=== PATIENT | female | born 1960 | race Caucasian/White ===

== ENCOUNTER 2017-04-05 00:51 | Observation (INO) | payer BC ==
[2017-04-05] MEDS ORDERED: PHENAZOPYRIDINE 100 MG TAB PO STA (01:14)
[2017-04-05] MEDS ORDERED: ONDANSETRON ODT 4 MG TAB PO STA (01:14)
--- NOTE | 2017-04-05 01:21 | ED ---
General Adult HPI - General Chief complaint: Abdominal Pain Stated complaint: Abd Pain Time Seen by Provider: 04/05/17 01:05 Source: patient, RN notes reviewed Mode of arrival: wheelchair Limitations: no limitations - History of Present Illness Initial comments: 56-year-old female presents emergency Department chief complaint of pelvic pain and burning with urination. Patient states she's had this for pelvic pain more to the right in the middle in the left side. Patient states she's also had burning stinging with urination. Patient states she is urinating much more. Patient states she has had some nausea with this well. Patient admits to history of UTIs in the past and states this feels much like that. Patient denies any cough cold runny nose. Patient denies any back pain with this. Patient denies any gross blood in the urine. Patient states she was concerned due to her symptoms so she thought that she should be evaluated. Patient denies any recent fever, chills, shortness of breath, chest pain, back pain, abdominal pain, vomiting, numbness or tingling, constipation or diarrhea, headaches or visual changes, or any other current symptoms. - Related Data Home Medications Medication Instructions Recorded Confirmed Levothyroxine Sodium [Synthroid] 125 mcg PO DAILY 04/05/17 04/05/17 Allergies Allergy/AdvReac Type Severity Reaction Status Date / Time Penicillins Allergy Rash/Hives Verified 04/05/17 01:01 morphine AdvReac Unknown Verified 04/05/17 01:01 Review of Systems ROS Statement: Those systems with pertinent positive or pertinent negative responses have been documented in the HPI. ROS Other: All systems not noted in ROS Statement are negative. Past Medical History Past Medical History: Thyroid Disorder History of Any Multi-Drug Resistant Organisms: None Reported Past Surgical History: Section, Cholecystectomy, Orthopedic Surgery, Tubal Ligation Additional Past Surgical History / Comment(s): gastric bypass 07/2006, thyroid removed 2005, neck fusion, breast reduction, bilat foot bunion removed, c-sect x 2, Past Psychological History: Anxiety, Depression Smoking Status: Former smoker Past Alcohol Use History: Occasional Past Drug Use History: None Reported General Exam - General Exam Comments Initial Comments: General: The patient is awake and alert, in no distress, and does not appear acutely ill. Eye: Pupils are equal, round and reactive to light, extra-ocular movements are intact; there is normal conjunctiva bilaterally. No signs of icterus. Ears, nose, mouth and throat: There are moist mucous membranes. Neck: The neck is supple, there is no tenderness. Cardiovascular: There is a regular rate and rhythm. No murmur, rub or gallop is appreciated. Respiratory: Lungs are clear to auscultation, respirations are non-labored, breath sounds are equal. No wheezes, stridor, rales, or rhonchi. Gastrointestinal: Soft, non-distended, suprapubic tenderness of the abdomen without masses or organomegaly noted. There is no rebound or guarding present. No CVA tenderness. Bowel sounds are unremarkable. Back: There is no tenderness to palpation in the midline. There is no obvious deformity. No rashes noted. Musculoskeletal: Normal ROM, no tenderness, There is no pedal edema. There is no calf tenderness or swelling. Sensation intact. Pulses equal bilaterally 2+. Neurological: CN II-XII intact, There are no obvious motor or sensory deficits. Coordination appears grossly intact. Speech is normal. Skin: Skin is warm and dry and no rashes or lesions are noted. Psychiatric: Cooperative, appropriate mood & affect, normal judgment. Limitations: no limitations Course Vital Signs 04/05/17 04/05/17 04/05/17 00:55 02:12 03:00 Temperature 96.9 F L Pulse Rate 82 65 94 Respiratory 16 18 20 Rate Blood Pressure 140/66 119/64 145/79 O2 Sat by Pulse 98 98 100 Oximetry Medical Decision Making - Medical Decision Making 56-year-old female presents emergency Department what appears to be UTI like symptoms. At this time. CAT scan is showing a 2 mm ureteral stone. This time there is suspicion for UTI on CAT scan along with bacteria noticing the urine. There is mild white count. At this time. Patient is on the border admission versus going home. The patient does not feel comfortable going home. She states she still is in a lot of discomfort. At this time we will admit the patient due to the nausea. The vomiting, the stone with a positive UTI due to her high risk of developing sepsis with this. The patient stated she understood and is in agreement with plan. The patient will be admitted. - Lab Data Result diagrams: 04/05/17 02:10 04/05/17 02:10 Lab Results 04/05/17 04/05/17 04/05/17 Range/Units 01:05 02:10 02:10 WBC 11.0 H (3.8-10.6) k/uL RBC 3.94 (3.80-5.40) m/uL Hgb 12.5 (11.4-16.0) gm/dL Hct 37.7 (34.0-46.0) % MCV 95.9 (80.0-100.0) fL MCH 31.9 (25.0-35.0) pg MCHC 33.2 (31.0-37.0) g/dL RDW 13.4 (11.5-15.5) % Plt Count 209 (150-450) k/uL Neutrophils % 83 % Lymphocytes % 11 % Monocytes % 4 % Eosinophils % 1 % Basophils % 0 % Neutrophils # 9.1 H (1.3-7.7) k/uL Lymphocytes # 1.2 (1.0-4.8) k/uL Monocytes # 0.4 (0-1.0) k/uL Eosinophils # 0.1 (0-0.7) k/uL Basophils # 0.0 (0-0.2) k/uL Sodium 140 (137-145) mmol/L Potassium 4.1 (3.5-5.1) mmol/L Chloride 101 (98-107) mmol/L Carbon Dioxide 28 (22-30) mmol/L Anion Gap 11 mmol/L BUN 18 H (7-17) mg/dL Creatinine 1.30 H (0.52-1.04) mg/dL Est GFR (MDRD) Af Amer 52 (>60 ml/min/1.73 sqM) Est GFR (MDRD) Non-Af 43 (>60 ml/min/1.73 sqM) Glucose 111 H (74-99) mg/dL Calcium 9.3 (8.4-10.2) mg/dL Total Bilirubin 0.4 (0.2-1.3) mg/dL AST 33 (14-36) U/L ALT 42 (9-52) U/L Alkaline Phosphatase 54 (38-126) U/L Total Protein 6.4 (6.3-8.2) g/dL Albumin 4.0 (3.5-5.0) g/dL Urine Color Yellow Urine Appearance Turbid H (Clear) Urine pH 5.5 (5.0-8.0) Ur Specific [place] 1.037 H (1.001-1.035) Urine Protein 1+ H (Negative) Urine Glucose (UA) Negative (Negative) Urine Ketones Negative (Negative) Urine Blood Negative (Negative) Urine Nitrite Negative (Negative) Urine Bilirubin Negative (Negative) Urine Urobilinogen 3.0 (<2.0) mg/dL Ur Leukocyte Esterase Negative (Negative) Ur Squamous Epith Cells 15 H (0-4) /hpf Calcium Oxalate Crystal Many H (None) /hpf Urine Bacteria Rare H (None) /hpf Hyaline Casts 14 H (0-2) /lpf Urine Mucus Few H (None) /hpf Disposition Clinical Impression: UTI (urinary tract infection), Ureteral calculi, Nausea & vomiting Disposition: ADMITTED IP TO THIS [facility] Condition: Stable Referrals: Lionel Caballero MD [Primary Care Provider] - 1-2 days Time of Disposition: 03:13 Decision Date: 04/05/17 Decision Time: 03:13
[2017-04-05 01:43] LABS: Appearance,Urine Turbid (Clear); Bacteria,Urine Rare /hpf; Bilirubin,Urine Negative (Negative); Calcium Oxalate Crystals,Urine Many /hpf; Glucose,Urine (UA) Negative (Negative); Ketones,Urine Negative (Negative); Leukocyte Esterase,Urine Negative (Negative); Mucus,Urine Few /hpf; Nitrite,Urine Negative (Negative); PH, Urine 5.5 (5.0-8.0); Particle Count 8699; Protein,Urine 1+ (Negative); Specific Gravity,Urine 1.037 (1.001-1.035); Squamous Epithelial Cell,Urine 15 /hpf (0-4); UA Billing (MACRO vs. MICRO) MICRO
[2017-04-05] MEDS ORDERED: HYDROmorphone 1 MG/ML 1 ML SYRINGE IVP STA (01:47)
--- NOTE | 2017-04-05 02:17 | CT ---
EXAM: CT Abdomen and Pelvis Without Intravenous Contrast CLINICAL HISTORY: Right flank pain, with nausea, vomiting, and difficult uriantion, history of gastric bypass 10 years ago, c-sections, and tubal ligation TECHNIQUE: Axial computed tomography images of the abdomen and pelvis without intravenous contrast. CTDI is 12 mGy and DLP is 590 mGy-cm. This CT exam was performed using one or more of the following dose reduction techniques: automated exposure control, adjustment of the mA and/or kV according to patient size, and/or use of iterative reconstruction technique. Coronal and sagittal reformatted images were created and reviewed. COMPARISON: No relevant prior studies available. FINDINGS: Lower thorax: No acute findings. ABDOMEN: Liver: Vague 8 mm low-density lesion right lobe of the liver. Gallbladder and bile ducts: Cholecystectomy. Pancreas: Unremarkable. No ductal dilation. Spleen: Unremarkable. No splenomegaly. Adrenals: Unremarkable. No mass. Kidneys and ureters: 2 mm stone in the distal right ureter near the UVJ resulting in mild right hydronephrosis. Mild right perinephric and periureteral stranding, consider superimposed infection. Stomach and bowel: Scattered colonic diverticulosis. No acute diverticulitis. Gastric bypass surgery. No bowel obstruction. Appendix: Normal appendix. PELVIS: Bladder: Unremarkable. No stones. Reproductive: Uterus absent. ABDOMEN and PELVIS: Intraperitoneal space: Unremarkable. No free air. No significant fluid collection. Bones/joints: Small sclerotic focus right sacrum is likely benign bone island in the absence of cancer history. L5-S1 degenerative disc disease. No acute fracture. No dislocation. Soft tissues: Unremarkable. Vasculature: Unremarkable. No abdominal aortic aneurysm. Lymph nodes: Unremarkable. No enlarged lymph nodes. IMPRESSION: 1. 2 mm stone in the distal right ureter near the UVJ resulting in mild right hydronephrosis. Mild right perinephric and periureteral stranding, consider superimposed infection. 2. Cholecystectomy. Gastric bypass. Hysterectomy. 3. Scattered colonic diverticulosis. No acute diverticulitis. 4. Normal appendix.
[2017-04-05 02:32] LABS: Calcium 9.3 mg/dL (8.4-10.2); Potassium 4.1 mmol/L (3.5-5.1); Total Bilirubin 0.4 mg/dL (0.2-1.3); Total Protein 6.4 g/dL (6.3-8.2)
[2017-04-05 02:35] LABS: Basophils % (A) 0 %; CHCM 33.5; Eosinophils # (A) 0.1 k/uL (0-0.7); Eosinophils % (A) 1 %; HCT 37.7 % (34.0-46.0); HDW 2.37; HGB 12.5 gm/dL (11.4-16.0); Luc # (Auto) 0.12; Luc % (Auto) 1; Lymphocytes # (A) 1.2 k/uL (1.0-4.8); Lymphocytes % (A) 11 %; MCH 31.9 pg (25.0-35.0); MCHC 33.2 g/dL (31.0-37.0); MCV 95.9 fL (80.0-100.0); Mean Platelet Volume 8.2; Monocytes # (A) 0.4 k/uL (0-1.0); Monocytes % (A) 4 %; Neutrophils # (A) 9.1 k/uL (1.3-7.7); Neutrophils % (A) 83 %; RBC 3.94 m/uL (3.80-5.40); RDW 13.4 % (11.5-15.5)
[2017-04-05] MEDS ORDERED: IBUPROFEN 400 MG TAB PO PRN (03:13)
[2017-04-05] MEDS ORDERED: ACETAMINOPHEN TAB 325 MG TAB PO PRN (03:13)
[2017-04-05] MEDS ORDERED: NALOXONE 0.4 MG/ML 1 ML VIAL IV PRN (03:13)
[2017-04-05] MEDS: SODIUM CHLORIDE 0.9% 1,000 ML IV SCH ×3 (03:50→21:35)
[2017-04-05] MEDS: ONDANSETRON 4 MG/2 ML VIAL IVP PRN ×2 (03:53→12:46)
[2017-04-05] MEDS: HYDROcodone/APAP 5-325MG 1 EACH TAB PO PRN ×4 (03:58→18:30)
[2017-04-05 04:37] VITALS: BMI 27.3
[2017-04-05] MEDS: HYDROmorphone 1 MG/ML 1 ML SYRINGE IV PRN ×3 (06:06→20:26)
[2017-04-05] MEDS: LEVOTHYROXINE 125 MCG TAB PO SCH (08:02)
[2017-04-05] MEDS ORDERED: ALPRAZolam 0.5 MG TAB PO PRN (16:08)
[2017-04-05] MEDS ORDERED: CYCLOBENZAPRINE 10 MG TAB PO PRN (16:08)
[2017-04-05] MEDS ORDERED: ALPRAZolam 0.25 MG TAB PO PRN (16:08)
[2017-04-05] MEDS ORDERED: MELATONIN 3 MG TABLET PO SCH (21:00)
[2017-04-05] MEDS: CALCITRIOL 0.25 MCG CAP PO SCH (21:35)
[2017-04-05] MEDS: HEPARIN SODIUM,PORCINE 5,000 UNIT/ML 1 ML VIAL SQ SCH (21:36)
--- NOTE | 2017-04-05 21:49 | HP ---
CHIEF COMPLAINTS: Abdominal pain as well as tiredness, weakness and back pain. HISTORY OF PRESENT ILLNESS: This 56-year-old woman with a past medical history of hypothyroidism, section, cholecystitis, history of DJD, history of gastric bypass, history of neck fusion, history of anxiety, depression, being followed Dr. Caballero in the outpatient setting was not feeling well the past couple of days. The patient had some dysuria, pelvic pain as well as some. Patient also had back pain which was right more than the left in the renal angle area. The patient came to [facility] and was admitted for further evaluation. A right ureteropelvic junction stone was suspected with some hydronephrosis. Otherwise, the patient had features of UTI. The white count was elevated and the patient admitted for further evaluation and treatment. There is no history of any fever or any rigors. No history of any headache, loss of consciousness, seizures. PAST MEDICAL HISTORY: History of hypothyroidism, history of section, cholecystitis, DJD, tubal ligation, gastric bypass, anxiety and depression. Medications prior to admission include home medications: 1. Effexor XR 150 mg p.o. daily. 2. Synthroid 125 mcg p.o. daily. 3. Prempro 1 tablet p.o. daily. 4. Flexeril 10 mg p.o. b.i.d. p.r.n. 5. Calcitriol 0.5 mcg p.o. daily. 6. Xanax 0.5 p.o. t.i.d. p.r.n. ALLERGIES ARE PENICILLIN AND MORPHINE. FAMILY HISTORY: No history of any heart disease, strokes in the family. SOCIAL HISTORY: Previous history of smoking. No history of current smoking or alcohol intake. REVIEW OF SYSTEMS: ENT: No diminishing hearing. No diminished vision. CARDIOVASCULAR: No angina or palpitations. RESPIRATORY: As mentioned earlier. GI: No nausea, vomiting. : No dysuria. NERVOUS: No numbness or weakness. ALLERGY/IMMUNOLOGY: No asthma, hay fever. MUSCULOSKELETAL: As mentioned earlier. HEMATOLOGY/ONCOLOGY: No history of anemia. ENDOCRINE: No history of diabetes, hypothyroidism CONSTITUTIONAL: As mentioned earlier. DERMATOLOGY: Negative. RHEUMATOLOGY: Negative. PSYCHIATRY: As mentioned earlier. PHYSICAL EXAM: The patient is alert and oriented x3. Pulse is 68, blood pressure 140/88, respirations 16, temperature 97.5, pulse ox 98% on room air. HEENT: Conjunctivae normal. Oral mucosa moist. NECK: No jugular venous distention. No carotid bruits. No lymph node enlargement. CARDIOVASCULAR: S1 and S2 muffled. No S3. No S4. RESPIRATORY: Breath sounds diminished in the bases. A few scattered rhonchi and crackles. ABDOMEN: Soft, nontender. No mass palpable. LEGS: No edema. No swelling. NERVOUS SYSTEM: Higher function as mentioned. Moves all 4 limbs. No focal motor or sensory deficits. LYMPHATIC: No lymphadenopathy in neck, axillae or groins. SKIN: No ulcer, rash or bleeding. LABS: WBC 11, hemoglobin is 12.5. Sodium 140, potassium 4.1, chloride is 101 and CO2 is 28, BUN is 18, creatinine 1.30, glucose 111. UA noted. ASSESSMENT: 1. Urinary tract infection with sepsis, possibly with pyelonephritis on the right side. 2. Increased creatinine with mild acute renal failure, possibly prerenal factors and acute tubular necrosis. 3. History of acute renal failure previously. 4. Increased WBC. 5. History of section. 6. History of cholecystectomy. 7. History of tubal ligation. 8. History of gastric bypass. 9. Hypothyroidism. 10. History of degenerative joint disease and neck fusion. 11. Anxiety and depression, not otherwise specified. 12. Remote history of nicotine dependence. RECOMMENDATIONS AND DISCUSSION: In this 56-year-old woman who presented with multiple complex medical issues, we will monitor the patient closely, continue with current medications and symptomatic treatment, continue with broad-spectrum IV antibiotics. Otherwise, I would recommend IV fluids. Monitor creatinine closely. Follow the cultures. DVT prophylaxis. Otherwise, continue to monitor. Guarded prognosis. See orders for further details.
[2017-04-06] MEDS: SODIUM CHLORIDE 0.9% 1,000 ML IV SCH ×2 (05:56→11:04)
[2017-04-06] MEDS ORDERED: PANTOPRAZOLE 40 MG TABLET PO SCH (07:30)
[2017-04-06 07:51] VITALS: BP 107/53; PULSE 81; RESP 16; TEMP 98.4
[2017-04-06] MEDS: CALCITRIOL 0.25 MCG CAP PO SCH (08:07)
[2017-04-06] MEDS: LEVOTHYROXINE 125 MCG TAB PO SCH (08:08)
[2017-04-06] MEDS: HEPARIN SODIUM,PORCINE 5,000 UNIT/ML 1 ML VIAL SQ SCH (08:08)
[2017-04-06 08:34] LABS: Basophils % (A) 1 %; CH 31.7; CHCM 32.7; Eosinophils # (A) 0.1 k/uL (0-0.7); Eosinophils % (A) 3 %; HCT 32.8 % (34.0-46.0); HGB 10.5 gm/dL (11.4-16.0); Luc # (Auto) 0.08; Luc % (Auto) 2; Lymphocytes # (A) 1.6 k/uL (1.0-4.8); Lymphocytes % (A) 34 %; MCH 31.2 pg (25.0-35.0); MCV 97.6 fL (80.0-100.0); Mean Platelet Volume 8.2; Monocytes # (A) 0.2 k/uL (0-1.0); Monocytes % (A) 5 %; Neutrophils # (A) 2.7 k/uL (1.3-7.7); Neutrophils % (A) 57 %; RBC 3.36 m/uL (3.80-5.40); RDW 13.5 % (11.5-15.5); WBC 4.7 k/uL (3.8-10.6); WBC (Perox) 4.91
[2017-04-06 08:55] LABS: Anion Gap 4 mmol/L; Blood Urea Nitrogen 11 mg/dL (7-17); Calcium 7.8 mg/dL (8.4-10.2); Carbon Dioxide 29 mmol/L (22-30); Chloride 110 mmol/L (98-107); Glucose 77 mg/dL (74-99); Non-African American GFR(MDRD) >60 (>60 ml/min/1.73 sqM); Potassium 3.9 mmol/L (3.5-5.1); Sodium 143 mmol/L (137-145)
[2017-04-06] MEDS ORDERED: VENLAFAXINE HCL ER 150 MG CAP PO SCH (09:00)
[2017-04-06] MEDS ORDERED: NON-FORMULARY DRUG (Estrogen,Con/M-Progest Acet [Prempro 0.625-2.5 Mg Tablet] 1 TAB) PO SCH (09:00)
[2017-04-06] MEDS: HYDROcodone/APAP 5-325MG 1 EACH TAB PO PRN (11:09)
--- NOTE | 2017-04-07 12:32 | DS ---
DATE OF ADMISSION: 04/05/2017 DATE OF DISCHARGE: 04/06/2017 DATE OF SERVICE: 04/06/2017 FINAL DIAGNOSES: 1. Urinary tract infection with possible sepsis with acute pyelonephritis on the right side with severe back pain and abdominal pain, improved. 2. Increased creatinine with mild acute renal failure, possible prerenal factors and acute tubular necrosis. 3. History of acute renal failure previously. 4. Increased WBC. 5. History of section. 6. History of cholecystectomy. 7. History of tubal ligation. 8. History of gastric bypass. 9. Hypothyroidism. 10. History of degenerative joint disease and neck fusion. 11. Anxiety, depression, not otherwise specified. 12. Remote history of nicotine dependence. DISCHARGE DISPOSITION: The patient will be discharged in stable condition with guarded prognosis. HISTORY OF PRESENT ILLNESS: This 56-year-old woman with a past medical history of multiple medical problems and features of pyelonephritis, UTI with sepsis was treated with antibiotics, improved significantly. Cultures are negative. On exam, vitals are stable. CARDIOVASCULAR SYSTEM: S1 and S2, muffled. ABDOMEN: Soft, nontender. NERVOUS SYSTEM: No focal deficits. The patient is . The patient is extremely keen on going home and to follow up with the primary physician in the outpatient setting and follow up cultures in the outpatient setting also. Patient agrees. DISCHARGE ADVICE: 1. Diet is cardiac. 2. Activity limited until followup. 3. Follow up with Dr. Lionel Caballero as recommended. Medications will be as follows: 1. Xanax 0.5 p.o. t.i.d. p.r.n. 2. Calcitriol 0.5 t.i.d. 3. Ceftin 500 mg p.o. b.i.d. for 5 days. 4. Flexeril 10 mg b.i.d. p.r.n. 5. Estrogen 1 tablet p.o. daily p.r.n. 6. Synthroid 125 mcg p.o. daily. 7. Protonix 40 mg daily. 8. Effexor XR 150 mg p.o. daily. Once again, the patient will be discharged in a stable condition with guarded prognosis. MTDD
== END 2017-04-06 14:54 | disposition home or self-care (01) ==
LOC: EC 00:51 → 4MS4W 03:13
PROVIDERS: ADMIT Internal Medicine; ATTEND Internal Medicine
DX: N39.0 Urinary tract infection, site not specified (principal); N10 Acute pyelonephritis; N17.9 Acute kidney failure, unspecified; Z87.440 Personal history of urinary (tract) infections; Z79.899 Other long term (current) drug therapy; Z88.5 Allergy status to narcotic agent; Z88.0 Allergy status to penicillin; Z87.891 Personal history of nicotine dependence; Z98.84 Bariatric surgery status; N20.1 Calculus of ureter; Z98.1 Arthrodesis status; M19.90 Unspecified osteoarthritis, unspecified site; F41.9 Anxiety disorder, unspecified; F32.9 Major depressive disorder, single episode, unspecified; Z90.49 Acquired absence of other specified parts of digestive tract; E89.0 Postprocedural hypothyroidism
CPT/HCPCS: 99285; 96365 ×2; 96375 ×4; 96376; 96361 ×2; 96366; 36415; 80053; 80048; 85025 ×2; 81001; 87040; 87086; 74176; G0378 ×2; J1644; J2405; J0696 ×2; J1170